=== PATIENT | male | born 1990 | race Caucasian/White ===

== ENCOUNTER 2017-05-04 17:08 | Emergency (ER) | payer MEDICARE, OTHER | END 2017-05-04 20:10 | disposition home or self-care (01) | LOC: FER 17:08 | DX: R03.0 Elevated blood-pressure reading, without diagnosis of hypertension (principal); N34.2 Other urethritis; R51 Headache; N40.0 Benign prostatic hyperplasia without lower urinary tract symptoms; F20.0 Paranoid schizophrenia; F41.9 Anxiety disorder, unspecified; F17.210 Nicotine dependence, cigarettes, uncomplicated; Z79.899 Other long term (current) drug therapy; Z20.2 Contact with and (suspected) exposure to infections with a predominantly sexual mode of transmission ==